=== PATIENT | female | born 1950 | race Caucasian/White ===

== ENCOUNTER 2016-09-07 02:33 | Emergency (ER) | payer MEDICARE, OTHER | END 2016-09-07 05:55 | disposition home or self-care (01) | LOC: ER1 02:33 | DX: M25.531 Pain in right wrist (principal); I10 Essential (primary) hypertension; E11.9 Type 2 diabetes mellitus without complications; I25.2 Old myocardial infarction; Z95.5 Presence of coronary angioplasty implant and graft; Z85.828 Personal history of other malignant neoplasm of skin; Z85.41 Personal history of malignant neoplasm of cervix uteri; Z88.0 Allergy status to penicillin; Z88.8 Allergy status to other drugs, medicaments and biological substances | CPT/HCPCS: 29125; 99283 ==

== ENCOUNTER 2020-08-10 10:58 | Emergency (ER) | payer MEDICARE, OTHER ==
[2020-08-10 12:07] LABS: HEMOGLOBIN 11.4 gm/dl (12.3-15.3); RED BLOOD COUNT 4.23 M/UL (4.00-5.10); WHITE BLOOD COUNT 12.1 K/UL (4.5-11.0)
[2020-08-10 12:16] LABS: BUN/CREATININE RATIO 19 (0-10)
[2020-08-10] MEDS ORDERED: COLCHICINE0.6 M1 PO (12:54)
== END 2020-08-10 13:20 | disposition home or self-care (01) ==
LOC: ER1 10:58
PROVIDERS: Physician Assistant
DX: M10.9 Gout, unspecified (principal); E11.9 Type 2 diabetes mellitus without complications; I11.9 Hypertensive heart disease without heart failure; Z79.899 Other long term (current) drug therapy
CPT/HCPCS: 73610; 80048; 84550; 85025; 85652; 86140; 96372; 99283; J1885

== ENCOUNTER → 2020-09-13 | Outpatient (CLI) | payer MEDICARE, OTHER ==
[~2020-09-13] MED LIST: COLCHICINE0.6 M1 PO
== END ==
LOC: KOH-I 11:55
DX: M54.9 Dorsalgia, unspecified (principal); R05 Cough; M47.816 Spondylosis without myelopathy or radiculopathy, lumbar region; M47.814 Spondylosis without myelopathy or radiculopathy, thoracic region; M48.02 Spinal stenosis, cervical region; M50.323 Other cervical disc degeneration at C6-C7 level; M47.812 Spondylosis without myelopathy or radiculopathy, cervical region
CPT/HCPCS: 71046; 72050; 72070; 72100

== ENCOUNTER → 2020-11-14 | Outpatient (CLI) | payer MEDICARE, OTHER | LOC: HEART 5 10:04 | DX: R06.02 Shortness of breath (principal); I08.2 Rheumatic disorders of both aortic and tricuspid valves; R93.1 Abnormal findings on diagnostic imaging of heart and coronary circulation | CPT/HCPCS: 93306 ==

== ENCOUNTER → 2021-05-17 | Outpatient (CLI) | payer MEDICARE, OTHER | LOC: RAD 14:06 | DX: R07.81 Pleurodynia (principal); S22.31XA Fracture of one rib, right side, initial encounter for closed fracture; X58.XXXA Exposure to other specified factors, initial encounter | CPT/HCPCS: 71111 ==

== ENCOUNTER → 2021-05-31 | Outpatient (CLI) | payer MEDICARE, OTHER | LOC: RAD 11:23 | DX: M25.552 Pain in left hip (principal); M16.12 Unilateral primary osteoarthritis, left hip | CPT/HCPCS: 73502 ==

== ENCOUNTER 2021-10-06 22:35 | Inpatient (IN) | payer MEDICARE, OTHER ==
[~2021-10-06] VITALS: Ht 157.5 cm; Wt 86.2 kg
[2021-10-06 23:33] LABS: HEMOGLOBIN 12.8 gm/dl (12.3-15.3); RED BLOOD COUNT 4.45 M/UL (4.00-5.10); WHITE BLOOD COUNT 11.4 K/UL (4.5-11.0)
[2021-10-07] MEDS ORDERED: LEFLUNOMIDE20 MG PO (13:10)
[2021-10-07] MEDS ORDERED: GABAPENTIN600 MG PO (13:11)
[2021-10-07] MEDS ORDERED: ONDANSETRON ODT4 MG PO (13:11)
[2021-10-07] MEDS ORDERED: NIACINAMIDE500 MG PO (13:12)
[2021-10-07] MEDS ORDERED: ATORVASTATIN CA80 MG PO (13:13)
[2021-10-07] MEDS ORDERED: VITAMIN D21250 MCG PO (13:14)
[2021-10-07] MEDS ORDERED: METOPROLOL TART25 MG PO (13:15)
[2021-10-07] MEDS ORDERED: HYDROCHLOROTHIA25 MG PO (13:15)
[2021-10-07] MEDS ORDERED: BRILINTA60 MG PO (13:16)
[2021-10-07] MEDS ORDERED: OMEPRAZOLE40 MG PO (13:16)
[2021-10-07] MEDS ORDERED: ASPIRIN CHEWABL81 MG PO (13:17)
[2021-10-07] MEDS ORDERED: ZETIA10 MG PO (13:17)
[2021-10-07] MEDS ORDERED: TYLENOL EXTRA500 MG PO (13:18)
[2021-10-07] MEDS ORDERED: VASOTEC5 MG PO (13:18)
[2021-10-08 03:14] LABS: HEMOGLOBIN 11.4 gm/dl (12.3-15.3)
[2021-10-08 03:15] LABS: WHITE BLOOD COUNT 8.5 K/UL (4.5-11.0)
[2021-10-09 02:55] LABS: HEMOGLOBIN 11.5 gm/dl (12.3-15.3); RED BLOOD COUNT 4.04 M/UL (4.00-5.10); WHITE BLOOD COUNT 8.1 K/UL (4.5-11.0)
[2021-10-09 03:34] LABS: BUN/CREATININE RATIO 20 (0-10)
--- NOTE | 2021-10-09 08:22 | NUR ---
PER DR MCGUIRE PATIENT TO STAY NPO TIL HE SEES THEM. PATIENT AND STAFF MADE AWARE
--- NOTE | 2021-10-09 13:00 | NUR ---
RN REMOVED PATIENT'S TR BAND TO RIGHT WRIST AFTER ALL AIR WAS REMOVED. NO S/SX OF BLEEDING OR HEMATOMA NOTED.
--- NOTE | 2021-10-09 13:58 | NUR ---
PATIENT GAVE VERBAL PERMISSION FOR STAFF TO GIVE INFORMATION OVER THE PHONE TO PUSHPA CRUZ.
[2021-10-10] MEDS ORDERED: ATORVASTATIN CA80 MG PO (08:50)
[2021-10-10] MEDS ORDERED: VASOTEC5 MG PO (08:50)
[2021-10-10] MEDS ORDERED: ISOSORBIDE MONO30 MG PO (08:58)
== END 2021-10-10 12:04 | disposition home or self-care (01) | DRG 287 ==
LOC: ER1 22:35 → CDU 10-07 02:57 → M/S 10-07 02:57 → CDU 10-07 02:57 → M/S 10-07 12:15
PROVIDERS: Internal Medicine; Nurse Practitioner; ADMIT Internal Medicine
PROC: B24BZZZ Ultrasonography of Heart with Aorta (ICD-10-PCS; 2021-10-07)
PROC: 4A023N7 Measurement of Cardiac Sampling and Pressure, Left Heart, Percutaneous Approach (ICD-10-PCS; principal; 2021-10-09)
PROC: B2111ZZ Fluoroscopy of Multiple Coronary Arteries using Low Osmolar Contrast (ICD-10-PCS; 2021-10-09)
DX: I20.0 Unstable angina (principal); N17.9 Acute kidney failure, unspecified; Z20.822 Contact with and (suspected) exposure to COVID-19; M32.9 Systemic lupus erythematosus, unspecified; E83.42 Hypomagnesemia; E86.1 Hypovolemia; I12.9 Hypertensive chronic kidney disease with stage 1 through stage 4 chronic kidney disease, or unspecified chronic kidney disease; N18.9 Chronic kidney disease, unspecified; E11.22 Type 2 diabetes mellitus with diabetic chronic kidney disease; I08.3 Combined rheumatic disorders of mitral, aortic and tricuspid valves; E86.0 Dehydration; M06.9 Rheumatoid arthritis, unspecified; Z95.5 Presence of coronary angioplasty implant and graft; Z85.41 Personal history of malignant neoplasm of cervix uteri; Z79.01 Long term (current) use of anticoagulants; Z79.82 Long term (current) use of aspirin; Z90.710 Acquired absence of both cervix and uterus; Z88.5 Allergy status to narcotic agent; Z88.0 Allergy status to penicillin; Z88.8 Allergy status to other drugs, medicaments and biological substances; Z82.49 Family history of ischemic heart disease and other diseases of the circulatory system
CPT/HCPCS: ECHO; 36415; 71045; 78452; 80048; 80053; 80076; 81001; 82550; 82553; 82962; 83735; 83880; 84100; 84484; 85025; 85379; 87086; 93005; 93017; 93306; 99152; 99153; A9502; C1769; C1894; G0378; J1644; J1650; J2250; J2785; J3010; J3475; J7030; Q9967

== ENCOUNTER → 2022-01-25 | Outpatient (CLI) | payer MEDICARE, OTHER ==
[~2022-01-25] MED LIST changes: +ASPIRIN CHEWABL81 MG PO; +ATORVASTATIN CA80 MG PO; +BRILINTA60 MG PO; +GABAPENTIN600 MG PO; +HYDROCHLOROTHIA25 MG PO; +ISOSORBIDE MONO30 MG PO; +LEFLUNOMIDE20 MG PO; +METOPROLOL TART25 MG PO; +NIACINAMIDE500 MG PO; +OMEPRAZOLE40 MG PO; +ONDANSETRON ODT4 MG PO; +TYLENOL EXTRA500 MG PO; +VASOTEC5 MG PO; +VITAMIN D21250 MCG PO; +ZETIA10 MG PO
== END ==
LOC: KOH-I 11:12
DX: R76.12 Nonspecific reaction to cell mediated immunity measurement of gamma interferon antigen response without active tuberculosis (principal); M05.79 Rheumatoid arthritis with rheumatoid factor of multiple sites without organ or systems involvement; M25.512 Pain in left shoulder
CPT/HCPCS: 71046; 73030